=== PATIENT | female | born 1965 | race Hispanic/Latino ===

== ENCOUNTER 2021-02-12 23:16 | Inpatient (IN) | payer SELFPAY ==
[~2021-02-12] VITALS: Ht 162.6 cm; Wt 92.8 kg
[2021-02-12 23:43] LABS: BASOPHILS % (AUTO) 0.5 % (0.0-5.0); EOSINOPHILS % (AUTO) 0.9 % (0.0-8.0); HEMATOCRIT 37.4 % (36-48); LYMPHOCYTES % (AUTO) 20.2 % (21.0-51.0); MEAN CORPUSCULAR HEMOGLOBIN 29.9 pg (27.0-33.0); MEAN CORPUSCULAR HGB CONC 33.2 g/dL (32.0-36.0); MEAN CORPUSCULAR VOLUME 90.1 fL (79-99); MONOCYTES % (AUTO) 10.1 % (3.0-13.0); PLATELET COUNT (AUTO) 304 K/uL (130-400); RED BLOOD CELL COUNT(AUTO) 4.15 MIL/uL (4.00-5.50); RED CELL DISTRIBUTION WIDTH 14.3 % (11.0-15.5); WHITE BLOOD COUNT (AUTO) 13.1 K/uL (4.8-10.8)
[2021-02-12 23:55] LABS: CREATININE 1.3 mg/dL (0.5-1.5); POTASSIUM 3.2 mmol/L (3.5-5.1)
[2021-02-12 23:57] LABS: PROTHROMBIN TIME 10.9 SEC (9.6-11.6)
[2021-02-13] LABS: ALBUMIN 3.8 g/dL (3.5-5.0); BILIRUBIN,TOTAL 0.4 mg/dL (0.2-1.0); TOTAL PROTEIN, SERUM 7.9 g/dL (6.0-8.3)
[2021-02-13 00:01] LABS: B-TYPE NATRIURETIC PEPTIDE 277 pg/mL (0-100)
[2021-02-13] MEDS ORDERED: POTASSIUM CHLORIDE 20MEQ/100ML 100 ML IV PRN (04:30)
[2021-02-13] MEDS ORDERED: POTASSIUM CHLORIDE 20MEQ/100ML 100 ML IV ONE (05:35)
[2021-02-13] MEDS: LACTATED RINGERS 1000ML 1,000 ML IV SCH ×2 (06:13→12:59)
[2021-02-13] MEDS: LIDOCAINE HCL-MPF 1% 2ML VIAL IV PRN (06:14)
[2021-02-13 06:26] LABS: APPEARANCE,URINE Clear (CLEAR); BILIRUBIN,URINE Negative (NEGATIVE); COLOR,URINE Yellow (YELLOW); GLUCOSE, URINE (UA) Negative (NEGATIVE); KETONES,URINE Negative (NEGATIVE); LEUKOCYTE ESTERASE ,URINE Moderate (NEGATIVE); NITRATE,URINE Negative (NEGATIVE); OCCULT BLOOD,URINE Negative (NEGATIVE); PROTEIN,URINE Negative (NEGATIVE)
[2021-02-13 06:53] LABS: BACTERIA,URINE Many /HPF (None Seen); RBC,URINE 0-1 /HPF (0-1)
[2021-02-13] MEDS ORDERED: METF-444 PO (07:21)
[2021-02-13] MEDS ORDERED: CHLO50TA PO (07:21)
[2021-02-13] MEDS ORDERED: LOSA100T58 PO (07:21)
[2021-02-13] MEDS ORDERED: NIFE90TA45 PO (07:21)
[2021-02-13] MEDS ORDERED: LEVO150 PO (07:21)
[2021-02-13] MEDS: FAMOTIDINE 20MG VIAL IV SCH (08:28)
[2021-02-13] MEDS: CEFTRIAXONE 1G VIAL IVP SCH (11:03)
[2021-02-13 11:30] VITALS: BP 161/73
[2021-02-13] MEDS ORDERED: VANCOMYCIN 1G 1 GM in 0.9% NACL 250ML 250 ML IV PRN (16:30)
[2021-02-13] MEDS ORDERED: VANCOMYCIN KIT 1 GM/250 ML IV.KIT IV PRN (16:30)
[2021-02-13] MEDS ORDERED: 0.9% NACL 250ML 250 ML IV PRN (16:30)
[2021-02-13 23:30] VITALS: BP 161/73
[2021-02-14] VITALS (12 sets, daily range): BP systolic 123–162; BP diastolic 60–82
[2021-02-14 05:16] LABS: BASOPHILS % (AUTO) 0.6 % (0.0-5.0); EOSINOPHILS % (AUTO) 1.8 % (0.0-8.0); HEMATOCRIT 34.8 % (36-48); LYMPHOCYTES % (AUTO) 24.7 % (21.0-51.0); MEAN CORPUSCULAR HEMOGLOBIN 29.5 pg (27.0-33.0); MEAN CORPUSCULAR HGB CONC 31.9 g/dL (32.0-36.0); MEAN CORPUSCULAR VOLUME 92.6 fL (79-99); MONOCYTES % (AUTO) 10.2 % (3.0-13.0); NEUTROPHILS % (AUTO) 62.4 % (40.0-77.0); PLATELET COUNT (AUTO) 245 K/uL (130-400); RED BLOOD CELL COUNT(AUTO) 3.76 MIL/uL (4.00-5.50); RED CELL DISTRIBUTION WIDTH 14.3 % (11.0-15.5)
[2021-02-14 05:29] LABS: MAGNESIUM 1.8 mg/dL (1.80-2.40); PHOSPHORUS 2.5 mg/dL (2.5-4.9); POTASSIUM 3.5 mmol/L (3.5-5.1)
[2021-02-14 05:33] LABS: HEMOGLOBIN A1C 6.4 % (4.0-6.0)
[2021-02-14] MEDS: LIDOCAINE HCL-MPF 1% 2ML VIAL IV PRN (06:34)
[2021-02-14] MEDS: FAMOTIDINE 20MG VIAL IV SCH (08:36)
[2021-02-14] MEDS: LACTATED RINGERS 1000ML 1,000 ML IV SCH ×3 (09:00→20:11)
[2021-02-14] MEDS ORDERED: NIFEDIPINE ER 30 MG TAB PO SCH (10:00)
[2021-02-14] MEDS: LOSARTAN 50 MG TABLET PO SCH (10:24)
[2021-02-14] MEDS: CEFTRIAXONE 1G VIAL IVP SCH (10:24)
[2021-02-14] MEDS ORDERED: MEPERIDINE-PF 25 MG/ML SYG ONE (12:37)
[2021-02-14] MEDS ORDERED: LIDOCAINE HCL 1% MDV 50ML VIAL ONE (12:37)
[2021-02-14] MEDS ORDERED: BUPIVACAINE/PF 0.25% 30ML VIAL IJ ONE (12:37)
[2021-02-14] MEDS ORDERED: MIDAZOLAM HCL 1 MG/ML 2ML VIAL ONE ×3 (12:37→13:30)
[2021-02-14] MEDS ORDERED: MEPERIDINE-PF 50 MG/ML SYG ONE (13:20)
[2021-02-14] MEDS ORDERED: IOHEXOL-350 50ML VIAL IV ONE (13:48)
[2021-02-14] MEDS ORDERED: ACETAMINOPHEN WITH CODEINE 1 TAB TAB PO PRN (15:00)
[2021-02-15 00:12] VITALS: BP 141/63
[2021-02-15 04:12] VITALS: BP 152/73
[2021-02-15] MEDS: LACTATED RINGERS 1000ML 1,000 ML IV SCH (05:00)
[2021-02-15 08:00] VITALS: BP 148/75
[2021-02-15] MEDS: LOSARTAN 50 MG TABLET PO SCH (08:07)
[2021-02-15] MEDS: CEFTRIAXONE 1G VIAL IVP SCH (08:07)
[2021-02-15] MEDS: FAMOTIDINE 20MG VIAL IV SCH (08:07)
[2021-02-15] MEDS ORDERED: LEVO500T89 PO (08:59)
[2021-02-15] MEDS ORDERED: LOSARTAN 100 MG TABLET PO SCH (09:00)
[2021-02-15] MEDS ORDERED: NIFEDIPINE ER 30 MG TAB PO SCH (09:00)
[2021-02-15] MEDS ORDERED: LEVOTHYROXINE 150 MCG TABLET PO SCH (09:00)
[2021-02-15 12:00] VITALS: BP 151/66
== END 2021-02-15 13:30 | disposition home or self-care (01) | DRG 244 ==
LOC: EDH 23:16 → EDHIP 23:17 → 4CH 02-13 22:33
PROVIDERS: ADMIT Internal Medicine; ATTEND Internal Medicine
PROC: 0JH606Z Insertion of Pacemaker, Dual Chamber into Chest Subcutaneous Tissue and Fascia, Open Approach (ICD-10-PCS; principal; 2021-02-14)
PROC: 02H63JZ Insertion of Pacemaker Lead into Right Atrium, Percutaneous Approach (ICD-10-PCS; 2021-02-14)
PROC: 02HK3JZ Insertion of Pacemaker Lead into Right Ventricle, Percutaneous Approach (ICD-10-PCS; 2021-02-14)
PROC: B5171ZZ Fluoroscopy of Left Subclavian Vein using Low Osmolar Contrast (ICD-10-PCS; 2021-02-14)
DX: I44.2 Atrioventricular block, complete (principal); R00.1 Bradycardia, unspecified; E87.6 Hypokalemia; E11.9 Type 2 diabetes mellitus without complications; I10 Essential (primary) hypertension; E78.5 Hyperlipidemia, unspecified; E78.00 Pure hypercholesterolemia, unspecified; E03.9 Hypothyroidism, unspecified
CPT/HCPCS: 33208; 36415; 71045; 80048; 80053; 81001; 81025; 82948; 83036; 83735; 83880; 84100; 84439; 84443; 84484; 85025; 85610; 85730; 86850; 86900; 86901; 87077; 87088; 87186; 87635; 93005; 99156; 99157; C1785; G0378; J0696; J2175; J2250; J3370; J3480; J3490; Q9967